=== PATIENT | male | born 1985 | race Caucasian/White ===

== ENCOUNTER 2017-03-23 19:12 | Emergency (ER) | payer BC ==
[2017-03-23 19:41] VITALS: BP 156/86
--- NOTE | 2017-03-23 20:09 | UC ---
Complaint Male HPI - HPI Summary HPI Summary: Condom broke while engaging in anal intercourse with another man yesterday, requesting HIV PEP. - History of Current Complaint Chief Complaint: UCSTDScreening Stated Complaint: STD TESTING Time Seen by Provider: 03/23/17 19:49 Hx Obtained From: Patient Onset/Duration: Sudden Onset Timing: Constant Severity Initially: Mild Severity Currently: None Location: None Aggravating Factor(s): Nothing Alleviating Factor(s): Nothing - Allergies/Home Medications Allergies/Adverse Reactions: Allergies Allergy/AdvReac Type Severity Reaction Status Date / Time No Known Allergies Allergy Verified 03/23/17 19:41 PMH/Surg Hx/FS Hx/Imm Hx Previously Healthy: Yes - Surgical History Surgical History: None - Family History Known Family History: Positive: Hypertension - Social History Occupation: Employed Full-time Alcohol Use: Occasionally Substance Use Type: Marijuana Smoking Status (MU): Never Smoked Tobacco Review of Systems Constitutional: Negative Skin: Negative Eyes: Negative ENT: Negative Respiratory: Negative Cardiovascular: Negative Gastrointestinal: Negative Genitourinary: Negative Motor: Negative Neurovascular: Negative Musculoskeletal: Negative Neurological: Negative Psychological: Negative All Other Systems Reviewed And Are Negative: Yes Physical Exam Triage Information Reviewed: Yes Appearance: Well-Appearing, No Pain Distress, Well-Nourished Vital Signs: Initial Vital Signs Temp 97.9 F 03/23/17 19:37 Pulse 58 03/23/17 19:37 Resp 16 03/23/17 19:37 BP 156/86 03/23/17 19:37 Pulse Ox 100 03/23/17 19:37 Vital Signs Reviewed: Yes Eye Exam: Normal Eyes: Positive: Conjunctiva Clear ENT Exam: Normal ENT: Positive: Normal ENT inspection, Hearing grossly normal, Pharynx normal, TMs normal Dental Exam: Normal Neck exam: Normal Neck: Positive: Supple, Nontender, No Lymphadenopathy Respiratory Exam: Normal Respiratory: Positive: Chest non-tender, Lungs clear, Normal breath sounds, No respiratory distress, No accessory muscle use Cardiovascular Exam: Normal Cardiovascular: Positive: RRR, No Murmur Musculoskeletal Exam: Normal Neurological Exam: Normal Neurological: Positive: Alert Psychological Exam: Normal Skin Exam: Normal Complaint Male Course/Dx - Differential Dx/Diagnosis Provider Diagnoses: unprotected sexual encounter. HIV post-exposure prophylaxis Discharge - Discharge Plan Condition: Stable Disposition: HOME Prescriptions: Raltegravir* [Isentress*] 400 mg PO BID #60 tab Tenofovir/Emtricitabine(*) [Truvada*] 1 tab PO DAILY #30 tab Patient Education Materials: Postexposure Prophylaxis (ED) Referrals: Chalo Blackman MD [Medical Doctor] - 1 Week Additional Instructions: If you have severe symptoms from the medication, please go to the emergency department.
[2017-03-24 10:50] LABS: Hematocrit 43 % (42-52); Hemoglobin 14.3 g/dl (14.0-18.0); Mean Corpuscular HGB Conc 33 g/dl (31-36); Mean Corpuscular Hemoglobin 31 pg (27-31); Mean Corpuscular Volume 92 fL (80-94); Mean Platelet Volume 12 um3 (7.4-10.4); Red Blood Count 4.68 10^6/ul (4.0-5.4); Red Cell Distribution Width 13 % (10.5-15); White Blood Count 7.1 10^3/ul (3.5-10.8)
[2017-03-24 11:14] LABS: Albumin 4.5 g/dL (3.2-5.2); Calcium 9.4 mg/dL (8.6-10.3); EGFR African American 170.9 (>60); EGFR Non-African American 132.9 (>60); Globulin 2.6 g/dL (2-4); Potassium 4.3 mmol/L (3.5-5.0); Total Bilirubin 0.4 mg/dL (0.2-1.0); Total Protein 7.1 g/dL (6.4-8.9)
== END 2017-03-23 20:15 | disposition home or self-care (01) ==
LOC: UCEAST 19:12
DX: Z11.3 Encounter for screening for infections with a predominantly sexual mode of transmission (principal); F12.90 Cannabis use, unspecified, uncomplicated
CPT/HCPCS: 36415; 80053; 85025; 86703; 99202; G0463

== ENCOUNTER 2017-10-10 19:16 | Emergency (ER) | payer BC ==
[2017-10-10 19:26] VITALS: BP 137/76
--- NOTE | 2017-10-10 19:57 | UC ---
Throat Pain/Nasal Carmelo HPI - HPI Summary HPI Summary: Pt presents with ST for 1 day. He tells me that his two children have been diagnosed with strep throat and he thinks he may have caught it. Has had a slight headache that started today. Denies fever, chills, cough, SOB, earache, sinus congestion/pain, chest pain, N/V/d/C - History of Current Complaint Chief Complaint: UCRespiratory Stated Complaint: SORE THROAT Time Seen by Provider: 10/10/17 19:27 Hx Obtained From: Patient Onset/Duration: Sudden Onset Severity: Mild Pain Intensity: 3 Pain Scale Used: 0-10 Numeric - Allergies/Home Medications Allergies/Adverse Reactions: Allergies Allergy/AdvReac Type Severity Reaction Status Date / Time No Known Allergies Allergy Verified 10/10/17 19:26 PMH/Surg Hx/FS Hx/Imm Hx Previously Healthy: Yes - Surgical History Surgical History: Yes Surgery Procedure, Year, and Place: bilat ear tubes - Social History Alcohol Use: Occasionally Substance Use Type: Marijuana Substance Use Comment - Amount & Last Used: monthly Smoking Status (MU): Never Smoked Tobacco Review of Systems Constitutional: Negative Skin: Negative Eyes: Negative ENT: Sore Throat Respiratory: Negative Cardiovascular: Negative Gastrointestinal: Negative All Other Systems Reviewed And Are Negative: Yes Physical Exam Triage Information Reviewed: Yes Appearance: Well-Appearing, Well-Nourished Vital Signs: Initial Vital Signs Temp 98.5 F 10/10/17 19:22 Pulse 75 10/10/17 19:22 Resp 18 10/10/17 19:22 BP 137/76 10/10/17 19:22 Pulse Ox 100 10/10/17 19:22 Vital Signs Reviewed: Yes ENT: Positive: Hearing grossly normal, Pharyngeal erythema, TMs normal, Tonsillar swelling - 2+, Uvula midline. Negative: Nasal congestion, Nasal drainage, TM bulging, TM dull, TM red, Tonsillar exudate, Muffled voice, Sinus tenderness Neck: Positive: Supple, Nontender, No Lymphadenopathy Respiratory: Positive: Chest non-tender, Lungs clear, Normal breath sounds, No respiratory distress, No accessory muscle use Cardiovascular: Positive: RRR, No Murmur, Pulses Normal Skin: Negative: rashes Throat Pain/Nasal Course/Dx - Course Course Of Treatment: POC strep pos. Amoxicillin 500mg BID 10 days - Differential Dx/Diagnosis Differential Diagnosis/HQI/PQRI: Influenza, Pharyngitis, Tonsillitis, URI Provider Diagnoses: Strep pharyngitis Discharge - Discharge Plan Condition: Stable Disposition: HOME Prescriptions: Amoxicillin PO (*) [Amoxicillin 500 MG CAP*] 500 mg PO Q12H #20 cap Patient Education Materials: Strep Throat (ED) Referrals: No Primary Care Phys,NOPCP [Primary Care Provider] - Additional Instructions: 1) Rest and drink plenty of fluids If you develop a fever, SOB, chest pain, new or worsening symptoms - please call your PCP or go to the ED. Your blood pressure was high at todays visit. Please see your primary provider within 4 weeks for recheck and re-evaluation.
== END 2017-10-10 20:06 | disposition home or self-care (01) ==
LOC: UCEAST 19:16 → MERGE 19:16 → UCEAST 20:06
DX: J02.0 Streptococcal pharyngitis (principal); F12.90 Cannabis use, unspecified, uncomplicated
CPT/HCPCS: 87651; 99202; G0463

== ENCOUNTER 2018-02-22 09:35 | Emergency (ER) | payer BC ==
[2018-02-22 09:49] VITALS: BP 137/80
--- NOTE | 2018-02-22 09:57 | UC ---
Throat Pain/Nasal Carmelo HPI - HPI Summary HPI Summary: Pt presents with sore throat for the last 3 days. He tells me that he had strep throat in the fall and this feels the same. Currently has pain with swallowing and tender lymph nodes in neck. Denies fever, chills, cough, SOB, chest pain, abdominal pain, n/v/d/c. - History of Current Complaint Chief Complaint: UCGeneralIllness Stated Complaint: SORE THROAT Time Seen by Provider: 02/22/18 09:57 Hx Obtained From: Patient Onset/Duration: Sudden Onset Severity: Mild Pain Intensity: 2 Pain Scale Used: 0-10 Numeric - Allergies/Home Medications Allergies/Adverse Reactions: Allergies Allergy/AdvReac Type Severity Reaction Status Date / Time No Known Allergies Allergy Verified 02/22/18 09:45 PMH/Surg Hx/FS Hx/Imm Hx Previously Healthy: Yes - Surgical History Surgical History: None Surgery Procedure, Year, and Place: bilat ear tubes - Family History Known Family History: Positive: Hypertension - Social History Occupation: Employed Full-time Lives: With Family Alcohol Use: Occasionally Substance Use Type: Marijuana Substance Use Comment - Amount & Last Used: monthly Smoking Status (MU): Former Smoker Review of Systems Constitutional: Negative Skin: Negative Eyes: Negative ENT: Sore Throat Respiratory: Negative Cardiovascular: Negative Gastrointestinal: Negative Neurovascular: Negative Musculoskeletal: Negative Neurological: Negative Psychological: Negative All Other Systems Reviewed And Are Negative: Yes Physical Exam - Summary Physical Exam Summary: GENERAL: NAD. WDWN. No pain distress. SKIN: No rashes, sores, ulcers, masses, lesions. HEENT: Head: AT/NC Eyes: Conjunctiva clear without inflammation or discharge. Ears: Hearing grossly normal. TMs intact, no bulging, erythema, or edema. Nose: Nasal mucosa pink and moist. NTTP maxillary and frontal sinus. Throat: Posterior oropharynx moderate erythema and 2+ tonsillar enlargement. Moderate exudates. Uvula midline. No hoarse voice or muffled voice. NECK: Supple. Tender tonsillar LAD CHEST: CTAB. No r/r/w. No accessory muscle use. Breathing comfortably and in no distress. CV: RRR. Without m/r/g. Pulses intact. Brisk cap refill. NEURO: Alert. CN II-XII grossly intact. PSYCH: Age appropriate behavior. Triage Information Reviewed: Yes Vital Signs: Initial Vital Signs Temp 98.6 F 02/22/18 09:46 Pulse 105 02/22/18 09:46 Resp 16 02/22/18 09:46 BP 137/80 02/22/18 09:46 Pulse Ox 100 02/22/18 09:46 Throat Pain/Nasal Course/Dx - Course Course Of Treatment: POC strep negative. Suspect viral vs bacterial tonsillitis. Will cover for infectious process with amoxicillin and send for throat culture. - Differential Dx/Diagnosis Provider Diagnoses: Tonsillitis Discharge - Sign-Out/Discharge Documenting (check all that apply): Discharge - Discharge Plan Condition: Stable Disposition: HOME Prescriptions: Amoxicillin PO (*) [Amoxicillin 500 MG CAP*] 500 mg PO Q12H #14 cap Patient Education Materials: Tonsillitis (ED) Referrals: No Primary Care Phys,NOPCP [Primary Care Provider] - Additional Instructions: If you develop a fever, shortness of breath, chest pain, new or worsening symptoms - please call your PCP or go to the ED. - Billing Disposition and Condition Condition: STABLE Disposition: HOME
== END 2018-02-22 10:27 | disposition home or self-care (01) ==
LOC: UCEAST 09:35
DX: J03.90 Acute tonsillitis, unspecified (principal); Z87.891 Personal history of nicotine dependence
CPT/HCPCS: 87070; 87651; 99212; G0463

== ENCOUNTER 2018-04-26 09:52 | Emergency (ER) | payer BC ==
[2018-04-26 09:58] VITALS: BP 138/91
--- NOTE | 2018-04-26 11:06 | UC ---
Priya Martin Gabriel, scribed for SlimeBranden zaidi MD on 04/26/18 at 1034 . Throat Pain/Nasal Carmelo HPI - HPI Summary HPI Summary: This patient is a 32 year old M presenting to [facility] with a chief complaint of a sore throat that began last night. The patient rates the pain 1/10 in severity. Patient reports fatigue and loose stool. Patient denies inability to swallow. Pt has no other complaints at this time. Pt states that amoxicillin did relieve symptoms last episode and states the symptoms feel similar. Pt has had increased stress in his life recently. Hx of recurrent tonsillitis that is cyclical and this is his third episode in the last 6 months. note: Vital signs stable, afebrile, pulse ox 100. BP 138/91. No antihypertensive medications. Visit history: for sore throat February 22 2018 and September 2017. On February 22 18: strep negative treated with amoxicillin for 7 days. Nurse note: sore throat started last pm - History of Current Complaint Chief Complaint: UCGeneralIllness Stated Complaint: SORE THROAT Time Seen by Provider: 04/26/18 10:27 Hx Obtained From: Patient Onset/Duration: Lasting Hours, Still Present Severity: Mild Pain Intensity: 1 Pain Scale Used: 0-10 Numeric Associated Signs & Symptoms: Positive: Other - fatigue - Allergies/Home Medications Allergies/Adverse Reactions: Allergies Allergy/AdvReac Type Severity Reaction Status Date / Time No Known Allergies Allergy Verified 02/22/18 09:45 PMH/Surg Hx/FS Hx/Imm Hx Endocrine History: Other Other Endocrine History: recurrent tonsillitis Other History Of: Negative For: Anticoagulant Therapy - Surgical History Surgical History: None Surgery Procedure, Year, and Place: bilat ear tubes - Family History Known Family History: Positive: Cardiac Disease, Hypertension Negative: Respiratory Disease, Seizure Disorder - Social History Occupation: Employed Full-time - [employer] Alcohol Use: Occasionally Substance Use Type: Marijuana Substance Use Comment - Amount & Last Used: monthly Smoking Status (MU): Former Smoker Review of Systems Constitutional: Fatigue ENT: Sore Throat Gastrointestinal: Other - loose stool All Other Systems Reviewed And Are Negative: Yes - Comments Additional Review of Systems Comments: Positive: sore throat, fatigue, and loose stool. Negative: inability to swallow. Physical Exam - Summary Physical Exam Summary: Appearance: The patient is well-appearing, is in no pain distress, and is well- nourished. Eyes: Conjunctiva are clear. ENT: The hearing is grossly normal and the TMs are normal. There is no muffled or hoarse voice. BILATERAL TONSILAR SWELLING, ERYTHEMA, AND EXUDATE. UVULA IS NOT ENLARGED AND TONSILS DO NOT TOUCH AT THE MIDLINE. NO PERITONSILAR ABSCESS Neck: The neck is supple and there is no lymphadenopathy. THERE IS NO TTP AT THE ANTERIOR CERVICAL LYMPH NODES. Respiratory: The chest is nontender. The lungs are clear, there are normal breath sounds, and there is no respiratory distress. Cardiovascular: Heart is regular rate and rhythm. There is no murmur. Abdomen: The abdomen is soft and nontender. There is no organomegaly. Bowel sounds: present Musculoskeletal: Strength is intact. The patient moves all extremities. Neurological: The patient is alert. Psychological: The patient displays age appropriate behavior Skin: Negative for rashes. Triage Information Reviewed: Yes Vital Signs: Initial Vital Signs Temp 97.8 F 04/26/18 09:56 Pulse 80 04/26/18 09:56 Resp 18 04/26/18 09:56 BP 138/91 04/26/18 09:56 Pulse Ox 100 04/26/18 09:56 Vital Signs Reviewed: Yes Throat Pain/Nasal Course/Dx - Course Course Of Treatment: Chronic recurrent pharyngitis I discussed with the pt the possibility of a carrier state or viral origin. Also I discussed the possibility of removing the tonsils by ENT. We decided to start on Keflex and follow-up with ENT. Rapid strep was negative today. Patient has been given an antibiotic because findings on physical examination and health history. The risks and benefits of antibiotic treatment have been discussed and patient has voiced understanding of these risks including the possibility of developing clostridium difficile enterocolitis.Pre-Hypertensive BP reading of 138/81; patient referred to PCP for follow-up. - Differential Dx/Diagnosis Differential Diagnosis/HQI/PQRI: Other - viral vs bacterial sore throat Provider Diagnoses: tonsillitis, rapid strep negative Discharge - Sign-Out/Discharge Documenting (check all that apply): Discharge/Admit/Transfer - Discharge Plan Condition: Stable Disposition: HOME Prescriptions: Cephalexin CAP* [Keflex 500 CAP*] 500 mg PO TID #30 cap MDD 3 Patient Education Materials: Tonsillitis (ED) Referrals: No Primary Care Phys,NOPCP [Primary Care Provider] - Additional Instructions: WE DISCUSSED: 1. YOUR STREP TEST WAS NEGATIVE. 2. You may need your tonsils removed. 3. I will give you Keflex, as we discussed. 4. Follow up ENT this month. 5. Recheck at any time for increased pain, temperature, difficulty breathing or swallowing. 6. USEFUL HOME REMEDIES: WARM WATER GARGLES, WITH TSP OF SALT PER 8 OUNCES OF WATER, GARGLE FOR A FEW SECONDS AND SPIT OUT; GARGLE AND SPIT OUT; EVERY THREE HOURS. AND/OR: WARM WATER OR TEA, HONEY AND LEMON; 2-3 CUPS A DAY. FOR SORE THROAT: KEEP THROAT MOIST WITH LOZENGES; TEA AND HONEY. USE WARM WATER GARGLES 3-4 TIMES A DAY. The documentation as recorded by the Priya oliva Gabriel accurately reflects the service I personally performed and the decisions made by me, Branden Alcocer MD.
== END 2018-04-26 11:00 | disposition home or self-care (01) ==
LOC: UCEAST 09:52
DX: J03.90 Acute tonsillitis, unspecified (principal); J31.2 Chronic pharyngitis; R19.7 Diarrhea, unspecified; R53.83 Other fatigue; Z87.891 Personal history of nicotine dependence
CPT/HCPCS: 87070; 87651; 99212; G0463